=== PATIENT | female | born 1995 | race Caucasian/White ===

== ENCOUNTER 2025-02-16 10:24 | Emergency (ER) | payer BC ==
[2025-02-16 10:40] VITALS: BP 108/68; PULSE 70; RESP 15; TEMP 98.1; BMI 29.9
== END 2025-02-16 11:51 | disposition home or self-care (01) ==
LOC: FER 10:24
DX: M25.572 Pain in left ankle and joints of left foot (principal); M25.472 Effusion, left ankle; W10.9XXA Fall (on) (from) unspecified stairs and steps, initial encounter
CPT/HCPCS: 73610-TC-LT-FY; 73630-TC-LT; 99283-25